=== PATIENT | female | born 1960 | race Caucasian/White ===

== ENCOUNTER 2016-11-26 07:31 | Emergency (ER) | payer OTHER ==
--- NOTE | 2016-11-26 09:29 | DIAGNOSTIC IMAGING REPORT ---
PROCEDURE: XR HAND 1 OR 2 VIEWS - RIGHT INDICATION: TRAUMA/INJURY TECHNIQUE: Two views. COMPARISON: None. FINDINGS: There is a vertical nondisplaced intra-articular fracture of the ulnar aspect of the right distal radius There are degenerative cystic changes of the right carpal navicular (scaphoid) with old avulsion fractures of the dorsum of the right wrist. There is moderate soft tissue swelling of the dorsum of the right hand. The rest the osseous structures and joint spaces are normal. IMPRESSION: 1. Nondisplaced vertical intra-articular fracture of the right distal radius. 2. Old avulsion fractures of the dorsum of the right hand. 3. Moderate soft tissue swelling of the dorsum of the right hand. 4. Findings discussed with Dr. Roland Whitley.
--- NOTE | 2016-11-26 09:38 | ED ORDER SUMMARY ---
..... Patient: JESI ARCHER OrderSheet [facility] VisitID: [id number] [address] [place] [address] 55y, F Registration Date/Time: 11/26/2016 ORDER SHEET Weight: 58.5 kg (stated) Allergies: None GENERAL ORDERS: Hand 2V Right Urgent (07:55 11/26/2016 Makenzie PRAJAPATI) (Ack 8:08 TBergley) (8:58 RMarsden R.N.) Wrist 3 or 4V Bilat Urgent (07:55 11/26/2016 Makenzie PRAJAPATI) (Ack 8:08 TBergley) (8:59 RMhector R.N.) (Cancelled: Other9:34 TBergley) Splint (UE) (Left) (Sugar Tong) (Short Arm) (09:19 11/26/2016 Makenzie PRAJAPATI) (9:34 TBergley) Wrist 3 or 4V Right Urgent (09:33 11/26/2016 TBergley written order Makenzie PRAJAPATI) (9:34 TBergley) MEDICATION ORDERS: Percocet PO 2 tabs (NOW) (09:30 11/26/2016 Makenzie PRAJAPATI) (9:45 LWhalcharlene R.N.) IV FLUIDS: ORDER SHEET NOTES: [Electronically signed by Henrietta Perez R.N. (14:13 11/26/2016)] [Electronically signed by Roland Whitley MD (17:40 11/26/2016)] [Electronically locked/signed by Henrietta Perez R.N. (14:13 11/26/2016)]
--- NOTE | 2016-11-26 09:38 | ED CLINICAL REPORT ---
Clinical Report - Physicians/[facility] [address] [place] [address] 11/26/2016 7:32 Patient: JESI ARCHER Time Seen: 07:52. Arrived- By private vehicle. Historian- patient and family. HISTORY OF PRESENT ILLNESS Chief Complaint: Injury to right hand and right wrist. The injury happened 2 days ago. Occurred at home. ( Ms Sawant has decreased mobility secondary to old bilateral hip injuries. She slipped on the glossy surface of a magazine and fell onto her hyper extended R wrist.). Patient is experiencing moderate pain. Patient also notes injury to the right upper extremity (elbow). REVIEW OF SYSTEMS The patient has had swelling. No tingling, numbness, weakness, suspected foreign body or skin laceration. PAST HISTORY PCP: Chuck VAZQUEZ/Ang PROBLEMS: Gastroesophageal Reflux Disease [Active]R.N. Wound Dehiscence. Dislocated Hip. Tetanus Status. Immunizations. Asthma [Intermittent]. Cellulitis [Resolved]. Hypertension [Resolved]. Abscess [Resolved]. Wound Infection [Resolved]. Abscess Check [Resolved]. Cellulitis Check [Resolved]. Puncture Wound [Resolved]. Dislocated Hip [Recurrent]. ADDITIONAL SURGERIES: Appendectomy. Back Surgery. . Hernia Repair. Hip Prosthesis. Hip Surgery. Knee Surgery. Tonsillectomy. The patient's dominant hand is the right. SOCIAL HISTORY Current every day smoker. ADDITIONAL NOTES The nursing notes have been reviewed. PHYSICAL EXAM Vital Signs: 11/26/2016 09:46 BP: 108/54. HR: 68. RR: 18. O2 saturation: 98%. Temp: 97.7 F. 11/26/2016 08:28 BP: 111/68. HR: 74. RR: 17. O2 saturation: 100%. Temp: 98.1 F. Pain level now: 6/10. Appearance: Alert. Patient in mild distress. Head: Head atraumatic. Neck: C-spine non-tender. Respiratory: Chest nontender. Abdomen: Soft and nontender. Back: No tenderness. Extremities: Right wrist: moderate swelling located in the dorsal, volar, radial and ulnar aspect of the wrist. Limited ROM secondary to pain (diminished flexion and extension). Neurovascular intact distally. No abrasion or deformity. Not localized to the anatomic snuffbox. Right hand: moderate tenderness and swelling localized to the proximal, distal, dorsal, palmar, radial and ulnar aspect of the hand. Neurovascular intact distally. (No warmth. Does not look like cellulitis or abscess). No erythema, abrasion, ecchymosis, puncture wound or foreign body. No deformity. ( Chronic deformities in both hips). Neuro: No alteration in mental status. LABS, X-RAYS, AND EKG Rt Wrist X-ray: (PROCEDURE: XR WRIST MIN 3 VIEWS - RIGHT INDICATION: PAIN TECHNIQUE: Four views. COMPARISON: None. FINDINGS: There is a nondisplaced vertical intra-articular fracture of the ulnar aspect of the right distal radius. There are old avulsion fractures of the dorsum of the right wrist. There are benign cystic changes of the right carpal navicular (scaphoid). The rest of the osseous structures are normal IMPRESSION: 1. Nondisplaced intra-articular fracture of the right distal radius. 2. Old avulsion fractures of the dorsum of the right wrist. 3. Findings discussed with Dr. Roland Whitley. Dictated by: MARIIA JJ MD D: LARISA;11/26/161116 <Electronically signed by MARIIA JJ MD in OV> 11/26/161116). The X-rays were interpreted by the radiologist and contemporaneously by me and discussed with the radiologist. Rt Hand X-ray: (ROCEDURE: XR HAND 1 OR 2 VIEWS - RIGHT INDICATION: TRAUMA/INJURY TECHNIQUE: Two views. COMPARISON: None. FINDINGS: There is a vertical nondisplaced intra-articular fracture of the ulnar aspect of the right distal radius There are degenerative cystic changes of the right carpal navicular (scaphoid) with old avulsion fractures of the dorsum of the right wrist. There is moderate soft tissue swelling of the dorsum of the right hand. The rest the osseous structures and joint spaces are normal. IMPRESSION: 1. Nondisplaced vertical intra-articular fracture of the right distal radius. 2. Old avulsion fractures of the dorsum of the right hand. 3. Moderate soft tissue swelling of the dorsum of the right hand. 4. Findings discussed with Dr. Roland Whitley. Dictated by: MARIIA JJ MD D: LARISA;11/26/16928 <Electronically signed by MARIIA JJ MD in OV> 11/26/16928). The X-rays were interpreted by the radiologist and contemporaneously by me and discussed with the radiologist. Lt Hand X-ray: (ROCEDURE: XR HAND 1 OR 2 VIEWS - RIGHT INDICATION: TRAUMA/INJURY TECHNIQUE: Two views. COMPARISON: None. FINDINGS: There is a vertical nondisplaced intra-articular fracture of the ulnar aspect of the right distal radius There are degenerative cystic changes of the right carpal navicular (scaphoid) with old avulsion fractures of the dorsum of the right wrist. There is moderate soft tissue swelling of the dorsum of the right hand. The rest the osseous structures and joint spaces are normal. IMPRESSION: 1. Nondisplaced vertical intra-articular fracture of the right distal radius. 2. Old avulsion fractures of the dorsum of the right hand. 3. Moderate soft tissue swelling of the dorsum of the right hand. 4. Findings discussed with Dr. Roland Whitley. Dictated by: MARIIA JJ MD D: LARISA;11/26/16928 <Electronically signed by MARIIA JJ MD in OV> 11/26/16928). The X-rays were interpreted by the radiologist and contemporaneously by me and discussed with the radiologist. PROGRESS AND PROCEDURES Splint Application: OCL sugar tong splint applied to right upper extremity. Splint applied by ED physician with direct supervision by me. Reassessed extremity following splint application. Neurovascular intact. Follow-up recommended within 5 days. Course of Care: Pt's SANTOS form shows several hundred oxycodone at the end of 2016. She had hip dislocation and revision at that time. She has a new fracture and has every reason to need analgesia. Her main need at this time is for strict ice and elevation. She is instructed. CLINICAL IMPRESSION Closed nondisplaced fracture of the distal right radius (CLOSED, NON DISPLACED LONGITUDINAL, DISTAL RADIUS FRACURE). INSTRUCTIONS Apply ice. Elevate affected areas above chest level. Wear sling and splint. (YOU NEED TO ELEVATE AND ICE THE ARM 80 PERCENT OF THE DAY SEE YOUR PCP CHUCK MONDAY HE MAY REFER YOU TO AN ORTHOPEDIC DR OR CARE FOR YOU HIMSELF). Prescription Medications: Oxycodone/APAP 5 mg/325 mg: take 1 tablet orally every 4 hours as needed for pain. Dispense fifteen (15). No refill. Follow-up: Follow up with your doctor Monday. Understanding of the discharge instructions verbalized by patient. (Electronically signed by Roland Whitley MD 11/26/2016 17:40)
--- NOTE | 2016-11-26 09:38 | ED NURSING NOTES ---
Clinical Report - Nurses [facility] [address] [place] [address] 11/26/2016 7:32 Patient: JESI ARCHER TRIAGE Triage time 07:34. Acuity: LEVEL 4. Chief Complaint: INJURY TO THE RIGHT FOREARM, RIGHT WRIST and RIGHT HAND. late entry - 07:40. Alert. No acute distress. SEPSIS SCREEN: Sepsis Screen. Negative (no infection suspected/documented). [place] SCORE: [place] Scale: 15- eyes open spontaneously (4); best verbal response- oriented x 4 (5); best motor response- obeys commands (6). --08:35 Henrietta Perez R.N. 08:28 11/26/16. BP: 111/68. HR: 74. RR: 17. O2 saturation: 100%. Temp: 98.1 F. Pain level now: 01/07. --08:35 Henrietta Perez R.N. Weight: 58.5 kg stated. Height/Length: 65 inches Per Patient. BMI: 21.5. --08:33 Henrietta Perez R.N. Medications Cephalexin Oral. --08:31 Henrietta Perez R.N. Bactrim Oral. --08:32 Henrietta Perez R.N. Allergies None. --08:32 Henrietta Perez R.N. History Arrived by private vehicle. Historian: patient. Primary care physician not notified of patient's arrival. This occurred (two days ago). Occurred at home. Mechanism of injury: fell. ( Patient states she tripped on a magazine and fell with all of her weight onto her wrist with her arm underneath her.). ( Patient reports throbbing in the fingers of her R hand.). Treatment KNOBBER: Ice and took ibuprofen. PAST MEDICAL HX: Tetanus status: up-to-date. Immunizations: up-to-date. Denies current . SOCIAL HX: Heavy tobacco smoker- less than 1 pack per day. No alcohol use or drug use. FALL RISK ASSESSMENT: Fall risk assessment completed. No fall risk identified. NUTRITIONAL RISK ASSESSMENT: The nutritional risk assessment revealed no deficiencies. FUNCTIONAL ASSESSMENT: Functional assessment: no impairments noted. LEARNING NEEDS ASSESSMENT: The learning needs assessment revealed no barriers. SKIN INTEGRITY ASSESSMENT: Skin integrity risk assessment completed. No skin integrity risk identified. --08:35 Henrietta Perez R.N. PROBLEMS: Gastroesophageal Reflux Disease [Active]. --08:32 Henrietta Perez R.N. Wound Dehiscence. Dislocated Hip. Tetanus Status. Immunizations. LNMP - Last Normal Menstrual Period. --08:32 Henrietta Perez R.N. Asthma [Intermittent]. --08:32 Henrietta Perez R.N. Cellulitis [Resolved]. Hypertension [Resolved]. Abscess [Resolved]. Wound Infection [Resolved]. Abscess Check [Resolved]. Cellulitis Check [Resolved]. Puncture Wound [Resolved]. --08:32 Henrietta Perez R.N. Dislocated Hip [Recurrent]. --08:32 Henrietta Perez R.N. ADDITIONAL SURGERIES: Appendectomy. Back Surgery. . Hernia Repair. Hip Prosthesis. Hip Surgery. Knee Surgery. Tonsillectomy. --08:32 Henrietta Perez R.N. Interventions ID band on patient. To treatment room. --08:35 Henrietta Perez R.N. PHYSICAL ASSESSMENT late entry - 07:45. To room via wheelchair. GENERAL / NEURO / PSYCH: Oriented X 4. Alert. Appears in no acute distress. HEENT: No signs of head trauma present. RESPIRATORY: No respiratory distress. CVS: Capillary refill is greater than 2 seconds (cap refill 2-3 seconds). GI / : No abdominal tenderness. No CVA tenderness. EXTREMITIES: Extremity pulses are within normal limits. Right forearm: tenderness and swelling. Right wrist: tenderness and swelling. Limited ROM secondary to pain, weakness and swelling (diminished flexion and extension). Right hand: swelling. ( Swelling of the R fingers noted. Limited flexion and extension of R fingers due to pain.). SKIN: Skin intact. Skin is warm and dry. --08:39 Henrietta Perez R.N. NURSING PROGRESS NOTES 07:50. Two patient identifiers checked. Call light placed in reach. Bed placed in lowest position. Brakes of bed on. ( Patient states "I don't want to be in the hospital. I don't trust hospitals. They messed up my hip". This RN provided patient education about reason for wait times.). --08:44 Henrietta Perez R.N. ( Patient provided with ice pack. Patient states "This is why I don't come here. Why is this taking so long?" Patient reports 8/10 pain in her wrist and requests pain medication. ED physician notified.). --09:11 Henrietta Perez R.N. Short arm sugar tong upper extremity splint applied to left arm by tech. Distal pulses intact, sensation intact and motor within normal limits. --09:36 Gladys Tate 09:45 11/26/2016 Percocet (Oxycodone-Acetaminophen) PO 5/325 mg Tablets 2 tab given. 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 --09:45 Xin Mcknight R.N. DISPOSITION / DISCHARGE Departure time: Nov 26 2016. Condition at departure: improved. No learning barriers present. Discharge instructions provided and reviewed with the patient. Reviewed warnings. Reviewed medication(s). Treatments reviewed. Reviewed referrals. Patient verbalized understanding. Written instructions provided in Georgian. The patient was discharged home and accompanied by spouse. She left the Emergency Department ambulatory and via private vehicle. Spouse driving. --09:50 Xin Mcknight R.N. 09:46 11/26/16. BP: 108/54. HR: 68. RR: 18. O2 saturation: 98%. Temp: 97.7 F. Pain level now 7/10. --09:50 Xin Mcknight R.N. Locked/Released at 11/26/2016 14:13 by Henrietta Perez R.N.
--- NOTE | 2016-11-26 09:38 | ED NURSING NOTES ---
Clinical Report - Nurses [facility] [place] [address] 11/26/2016 7:32 Patient: JESI ARCHER TRIAGE Triage time 07:34. Acuity: LEVEL 4. Chief Complaint: INJURY TO THE RIGHT FOREARM, RIGHT WRIST and RIGHT HAND. late entry - 07:40. Alert. No acute distress. SEPSIS SCREEN: Sepsis Screen. Negative (no infection suspected/documented). [place] COM[place] SCORE: [place] Scale: 15- eyes open spontaneously (4); best verbal response- oriented x 4 (5); best motor response- obeys commands (6). --08:35 Henrietta Perez R.N. 08:28 11/26/16. BP: 111/68. HR: 74. RR: 17. O2 saturation: 100%. Temp: 98.1 F. Pain level now: 01/07. --08:35 Henrietta Perez R.N. Weight: 58.5 kg stated. Height/Length: 65 inches Per Patient. BMI: 21.5. --08:33 Henrietta Perez R.N. Medications Cephalexin Oral. --08:31 Henrietta Perez R.N. Bactrim Oral. --08:32 Henrietta Perez R.N. Allergies None. --08:32 Henrietta Perez R.N. History Arrived by private vehicle. Historian: patient. Primary care physician not notified of patient's arrival. This occurred (two days ago). Occurred at home. Mechanism of injury: fell. ( Patient states she tripped on a magazine and fell with all of her weight onto her wrist with her arm underneath her.). ( Patient reports throbbing in the fingers of her R hand.). 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 PAST MEDICAL HX: Tetanus status: up-to-date. Immunizations: up-to-date. Denies current . SOCIAL HX: Heavy tobacco smoker- less than 1 pack per day. No alcohol use or drug use. FALL RISK ASSESSMENT: Fall risk assessment completed. No fall risk identified. NUTRITIONAL RISK ASSESSMENT: The nutritional risk assessment revealed no deficiencies. FUNCTIONAL ASSESSMENT: Functional assessment: no impairments noted. LEARNING NEEDS ASSESSMENT: The learning needs assessment revealed no barriers. SKIN INTEGRITY ASSESSMENT: Skin integrity risk assessment completed. No skin integrity risk identified. --08:35 Henrietta Perez R.N. PROBLEMS: Gastroesophageal Reflux Disease [Active]. --08:32 Henrietta Perez R.N. Wound Dehiscence. Dislocated Hip. Tetanus Status. Immunizations. LNMP - Last Normal Menstrual Period. --08:32 Henrietta Perez R.N. Asthma [Intermittent]. --08:32 Henrietta Perez R.N. Cellulitis [Resolved]. Hypertension [Resolved]. Abscess [Resolved]. Wound Infection [Resolved]. Abscess Check [Resolved]. Cellulitis Check [Resolved]. Puncture Wound [Resolved]. --08:32 Henrietta Perez R.N. Dislocated Hip [Recurrent]. --08:32 Henrietta Perez R.N. ADDITIONAL SURGERIES: Appendectomy. Back Surgery. . Hernia Repair. Hip Prosthesis. Hip Surgery. Knee Surgery. Tonsillectomy. --08:32 Henrietta Perez R.N. Interventions ID band on patient. To treatment room. --08:35 Henrietta Perez R.N. PHYSICAL ASSESSMENT late entry - 07:45. To room via wheelchair. GENERAL / NEURO / PSYCH: Oriented X 4. Alert. Appears in no acute distress. HEENT: No signs of head trauma present. RESPIRATORY: No respiratory distress. CVS: Capillary refill is greater than 2 seconds (cap refill 2-3 seconds). GI / : No abdominal tenderness. No CVA tenderness. EXTREMITIES: Extremity pulses are within normal limits. Right forearm: tenderness and swelling. Right wrist: tenderness and swelling. Limited ROM secondary to pain, weakness and swelling (diminished flexion and extension). Right hand: swelling. ( Swelling of the R fingers noted. Limited flexion and extension of R fingers due to pain.). SKIN: Skin intact. Skin is warm and dry. --08:39 Henrietta Perez R.N. NURSING PROGRESS NOTES 07:50. Two patient identifiers checked. Call light placed in reach. Bed placed in lowest position. Brakes of bed on. ( Patient states "I don't want to be in the hospital. I don't trust hospitals. They messed up my hip". This RN provided patient education about reason for wait times.). --08:44 Henrietta Perez R.N. ( Patient provided with ice pack. Patient states "This is why I don't come here. Why is this taking so long?" Patient reports 8/10 pain in her wrist and requests pain medication. ED physician notified.). --09:11 Henrietta Perez R.N. Short arm sugar tong upper extremity splint applied to left arm by tech. Distal pulses intact, sensation intact and motor within normal limits. --09:36 Gladys Tate 09:45 11/26/2016 Percocet (Oxycodone-Acetaminophen) PO 5/325 mg Tablets 2 tab given. Allergies verified, confirmed 5 rights and sedative warning given to the patient and patient's drum handler. --09:45 Xin Mcknight R.N. DISPOSITION / DISCHARGE Departure time: Nov 26 2016. Condition at departure: improved. No learning barriers present. Discharge instructions provided and reviewed with the patient. Reviewed warnings. Reviewed medication(s). Treatments reviewed. Reviewed referrals. Patient verbalized understanding. Written instructions provided in Occitan. The patient was discharged home and accompanied by spouse. She left the Emergency Department ambulatory and via private vehicle. Spouse driving. --09:50 Xin Mcknight R.N. 09:46 11/26/16. BP: 108/54. HR: 68. RR: 18. O2 saturation: 98%. Temp: 97.7 F. Pain level now 7/10. --09:50 Xin Mcknight R.N. Locked/Released at 11/26/2016 14:13 by Henrietta Perez R.N.
--- NOTE | 2016-11-26 09:38 | ED ORDER SUMMARY ---
..... Patient: JESI ARCHER OrderSheet [facility] VisitID: [id number] [address] [place] [address] 55y, F Registration Date/Time: 11/26/2016 ORDER SHEET Weight: 58.5 kg (stated) Allergies: None GENERAL ORDERS: Hand 2V Right Urgent (07:55 11/26/2016 Makenzie PRAJAPATI) (Ack 8:08 TBergley) (8:58 RMarsden R.N.) Wrist 3 or 4V Bilat Urgent (07:55 11/26/2016 Makenzie PRAJAPATI) (Ack 8:08 TBergley) (8:59 RMhector R.N.) (Cancelled: Other9:34 TBergley) Splint (UE) (Left) (Sugar Tong) (Short Arm) (09:19 11/26/2016 Makenzie PRAJAPATI) (9:34 TBergley) Wrist 3 or 4V Right Urgent (09:33 11/26/2016 TBergley written order Makenzie PRAJAPATI) (9:34 TBergley) MEDICATION ORDERS: Percocet PO 2 tabs (NOW) (09:30 11/26/2016 Makenzie PRAJAPATI) (9:45 LWhalcharlene R.N.) IV FLUIDS: ORDER SHEET NOTES: [Electronically signed by Henrietta Perez R.N. (14:13 11/26/2016)] [Electronically signed by Roland Whitley MD (17:40 11/26/2016)] [Electronically locked/signed by Henrietta Perez R.N. (14:13 11/26/2016)]
--- NOTE | 2016-11-26 11:17 | DIAGNOSTIC IMAGING REPORT ---
PROCEDURE: XR WRIST MIN 3 VIEWS - RIGHT INDICATION: PAIN TECHNIQUE: Four views. COMPARISON: None. FINDINGS: There is a nondisplaced vertical intra-articular fracture of the ulnar aspect of the right distal radius. There are old avulsion fractures of the dorsum of the right wrist. There are benign cystic changes of the right carpal navicular (scaphoid). The rest of the osseous structures are normal IMPRESSION: 1. Nondisplaced intra-articular fracture of the right distal radius. 2. Old avulsion fractures of the dorsum of the right wrist. 3. Findings discussed with Dr. Roland Whitley.
--- NOTE | 2016-11-26 17:41 | ED DISCHARGE INSTRUCTIONS ---
Patient: JESI ARCHER General Instructions [facility] VisitID: [id number] [address] [place] [address] 55y, F Registration Date/Time: 11/26/2016 Closed nondisplaced fracture of the distal right radius (CLOSED, NON DISPLACED LONGITUDINAL, DISTAL RADIUS FRACURE). INSTRUCTIONS Apply ice. Elevate affected areas above chest level. Wear sling and splint. (YOU NEED TO ELEVATE AND ICE THE ARM 80 PERCENT OF THE DAY SEE YOUR PCP CHUCK MONDAY HE MAY REFER YOU TO AN ORTHOPEDIC DR OR CARE FOR YOU HIMSELF). Prescription Medications: Oxycodone/APAP 5 mg/325 mg: take 1 tablet orally every 4 hours as needed for pain. Dispense fifteen (15). No refill. Follow-up: Follow up with your doctor Monday. Understanding of the discharge instructions verbalized by patient. ADDITIONAL INFORMATION Fracture: Wrist (General) You have a fracture (break) of a bone in your wrist. This may be a small crack or chip in the bone; or a major break with the broken parts pushed out of position. Wrist fractures are treated with a splint or cast. They take about 4-6 weeks to heal. Severe injuries may require surgery. Home Care: Keep your arm elevated to reduce pain and swelling. When sitting or lying down elevate your arm above the level of your heart. You can do this by placing your arm on a pillow that rests on your chest or on a pillow at your side. This is most important during the first 48 hours after injury. Apply an ice pack (ice cubes in a plastic bag, wrapped in a towel) over the injured area for 20 minutes every 1-2 hours the first day. You can place the ice pack inside the sling and directly over the splint/cast. Continue with ice packs 3-4 times a day for the next two days, then as needed for the relief of pain and swelling. Keep the cast/splint completely dry at all times. Bathe with your cast/splint out of the water, protected with a large plastic bag, rubber-banded at the top end. If a fiberglass splint/cast gets wet, you can dry it with a hair-dryer. You may use acetaminophen (Tylenol) or ibuprofen (Motrin, Advil) to control pain, unless another pain medicine was prescribed. [NOTE: If you have chronic liver or kidney disease or ever had a stomach ulcer or GI bleeding, talk with your doctor before using these medicines.] Follow Up with your doctor in one week, or as advised by our staff, to be sure the bone is healing properly. If a splint was applied, it will be changed to a cast during your follow-up visit. [NOTE: Any X-rays taken will be reviewed by a radiologist. You will be notified if there are any new findings that may affect your care.] Get Prompt Medical Attention if any of the following occur: The plaster cast or splint becomes wet or soft The fiberglass cast or splint remains wet for more than 24 hours Increased tightness or pain under the cast or splint Fingers become swollen, cold, blue, numb or tingly You have been given the following additional information: Fracture, Wrist [General] (Electronically signed by Roland Whitley MD 11/26/2016 17:40)
--- NOTE | 2016-11-26 17:41 | ED MAR SUMMARY ---
..... Medication Administration Record [facility] [address] [place] [address] Patient: JESI ARCHER Visit ID: [id number] 55y, F Weight: 58.5 kg Height/Length: 65 in BMI: 21.5 ALLERGIES: None Given 09:45 11/26/2016 Xin Mcknight R.N. Medication Administered: PERCOCET [PO] (OXYCODONE-ACETAMINOPHEN), Dose: 2 tab 5/325 mg Tablets PO. Medication Ordered: Percocet PO 2 tabs (NOW).
--- NOTE | 2016-11-26 17:41 | ED MED RECONCILIATION SUMMARY ---
Patient: JESI ARCHER Medication Reconciliation Report [facility] VisitID: [id number] [address] [place] [address] 55y, F Registration Date/Time: 11/26/2016 Weight: 58.5 kg Height/Length: 65 in. BMI: 21.5 ALLERGIES: None The patient's Home Medications are listed below: THE FOLLOWING MEDICATIONS NEED TO BE RECONCILED: Bactrim Oral Cephalexin Oral The source(s) of the original Home Medication information: Not obtained. The following Medications were given to the patient in the Emergency Department: Percocet [PO] PO 2 tab, administered: 11/26/2016 9:45:00 AM The following Medications were prescribed to the patient: Oxycodone/APAP 5 mg/325 mg: take 1 tablet orally every 4 hours as needed for pain. Dispense fifteen (15). No refill. -- Roland Whitley MD
--- NOTE | 2016-11-26 17:41 | ED MED RECONCILIATION SUMMARY ---
Patient: JESI ARCHER Medication Reconciliation Report [facility] VisitID: [id number] [address] [place] [address] 55y, F Registration Date/Time: 11/26/2016 Weight: 58.5 kg Height/Length: 65 in. BMI: 21.5 ALLERGIES: None The patient's Home Medications are listed below: THE FOLLOWING MEDICATIONS NEED TO BE RECONCILED: Bactrim Oral Cephalexin Oral The source(s) of the original Home Medication information: Not obtained. The following Medications were given to the patient in the Emergency Department: Percocet [PO] PO 2 tab, administered: 11/26/2016 9:45:00 AM The following Medications were prescribed to the patient: Oxycodone/APAP 5 mg/325 mg: take 1 tablet orally every 4 hours as needed for pain. Dispense fifteen (15). No refill. -- Roland Whitley MD
--- NOTE | 2016-11-26 17:41 | ED MAR SUMMARY ---
..... Medication Administration Record [facility] [address] [place] [address] Patient: JESI ARCHER Visit ID: [id number] 55y, F Weight: 58.5 kg Height/Length: 65 in BMI: 21.5 ALLERGIES: None Given 09:45 11/26/2016 Xin Mcknight R.N. Medication Administered: PERCOCET [PO] (OXYCODONE-ACETAMINOPHEN), Dose: 2 tab 5/325 mg Tablets PO. Medication Ordered: Percocet PO 2 tabs (NOW).
== END 2016-11-26 09:50 | disposition home or self-care (01) ==
LOC: ED SRH 07:31
DX: S52.501A Unspecified fracture of the lower end of right radius, initial encounter for closed fracture (principal); F17.200 Nicotine dependence, unspecified, uncomplicated; W01.0XXA Fall on same level from slipping, tripping and stumbling without subsequent striking against object, initial encounter; Y92.009 Unspecified place in unspecified non-institutional (private) residence as the place of occurrence of the external cause